=== PATIENT | female | born 1990 | race African-American/Black ===

== ENCOUNTER 2022-05-24 10:12 | Emergency (ER) | payer OTHER ==
[~2022-05-24] VITALS: Ht 160 cm; Wt 53.0 kg
[2022-05-24 12:19] LABS: BASOPHILS % 0.2 % (0.0-2.0); EOSINOPHILS % 0.6 % (0.0-5.0); HEMATOCRIT. 37.7 % (36.0-48.0); HEMOGLOBIN. 12.2 g/dL (12.0-16.0); LYMPHOCYTES % 10.2 % (20.0-50.0); MEAN CORPUSCULAR HEMOGLOBIN 27.6 pg (28.0-32.0); MEAN CORPUSCULAR VOLUME 85.5 fL (81.0-99.0); MEAN PLATELET VOLUME 7.7 fl (7.4-10.4); MONOCYTES % 11.1 % (2.0-8.0); NEUTROPHILS % 77.9 % (40.0-76.0); PLATELET 294 x1000/uL (130-400); RED BLOOD CELL COUNT 4.41 mill/uL (4.2-5.4); RED CELL DISTRIBUTION WIDTH 14.5 % (11.6-14.6)
[2022-05-24 12:30] LABS: CHLORIDE 106 mEq/L (98-107)
[2022-05-24] MEDS ORDERED: ONDANSETRON HCL 4MG/2ML INJ IM STA (13:06)
[2022-05-24] MEDS ORDERED: KETOROLAC 60MG/2ML VIAL IM STA (13:06)
[2022-05-24 13:14] LABS: CLARITY URINE CLOUDY (CLEAR); COLOR URINE YELLOW (YELLOW); KETONES URINE NEGATIVE (NEGATIVE); LEUKOCYTE ESTERASE URINE 3+ (NEGATIVE); NITRITE URINE NEGATIVE (NEGATIVE); OCCULT BLOOD URINE NEGATIVE (NEGATIVE); PH URINE 5.5 (4.5-8.0); PROTEIN URINE NEGATIVE (NEGATIVE); SPECIFIC GRAVITY URINE 1.019 (1.005-1.030); UROBILINOGEN URINE 0.2 E.U./dL (0.2-1.0)
[2022-05-24] MEDS ORDERED: LIDOCAINE HCL/PF 1% 10 MG/ML 5ML VIAL INFIL NR (14:15)
[2022-05-24] MEDS ORDERED: CEFTRIAXONE SODIUM 1 G/VIAL IM NR (14:15)
[2022-05-24 14:50] VITALS: BP 118/77
[2022-05-24] MEDS ORDERED: ONDA4TAB50 PO (14:53)
[2022-05-24] MEDS ORDERED: NAPR-681 PO (14:53)
[2022-05-24] MEDS ORDERED: SULF1TAB48 MT (14:53)
== END 2022-05-24 15:40 | disposition home or self-care (01) ==
LOC: ER 10:12
DX: N39.0 Urinary tract infection, site not specified (principal)
CPT/HCPCS: 36415; 80053; 81003; 81025; 83690; 85025; 87077; 87086; 93005; 96372; 99284; J0696; J1885; J2405; J3490; Z7610